=== PATIENT | female | born 2000 | race African-American/Black ===

== ENCOUNTER 2025-10-10 20:12 | Emergency (ER) | payer MEDICAID ==
[~2025-10-10] VITALS: Ht 177.8 cm; Wt 82.0 kg
[2025-10-10 20:16] VITALS: O2SAT 100
[2025-10-10] MEDS: ONDANSETRON 4MG ODT PO ONE ×2 (23:22→23:37)
[2025-10-10] MEDS: HYDROCODONE/ACETAMINOPHEN 5/325MG TABLET PO ONE (23:22)
[2025-10-10] MEDS ORDERED: BO1 TP (23:39)
[2025-10-10] MEDS ORDERED: LIDO35.421 TP (23:39)
[2025-10-10] MEDS ORDERED: IBUP-1455 MT (23:40)
[2025-10-10] MEDS ORDERED: HYDR-4001 MT (23:44)
[2025-10-11 00:09] VITALS: BP 124/77; PULSE 89; RESP 18; TEMP 36.6; O2SAT 98
== END 2025-10-11 00:12 | disposition home or self-care (01) ==
LOC: ER 20:12
DX: T24.212A Burn of second degree of left thigh, initial encounter (principal); T31.0 Burns involving less than 10% of body surface; X08.8XXA Exposure to other specified smoke, fire and flames, initial encounter; Y93.89 Activity, other specified; Y92.89 Other specified places as the place of occurrence of the external cause; Y99.8 Other external cause status
CPT/HCPCS: 99284; 16020; Q0162